=== PATIENT | female | born 1995 | race Caucasian/White ===

== ENCOUNTER 2021-05-11 20:09 | Inpatient (IN) | payer OTHER ==
[2021-05-11 20:41] LABS: HCT 34.2 % (37.0-47.0); HGB 11.3 g/dl (12.5-16.0); MCV 84.9 fL (78.0-100.0); MPV 11.1 fL (6.0-9.5); RBC 4.03 M/uL (4.20-5.40); RDW 13.5 % (11.5-14.0); WBC 10.9 K/uL (4.0-10.5)
[2021-05-11 20:42] LABS: AMPHETAMINES NEGATIVE (NEGATIVE); BARBITURATES NEGATIVE (NEGATIVE); BILIRUBIN NEGATIVE (NEGATIVE); BLOOD NEGATIVE Ery/uL (NEGATIVE); CLARITY CLEAR (CLEAR); COLOR YELLOW (YELLOW); ECSTASY (MDMA) NEGATIVE (NEGATIVE); GLUCOSE (U) NORMAL (NORMAL); LEUKOCYTES NEGATIVE Leu/uL (NEGATIVE); MARIJUANA (THC) NEGATIVE (NEGATIVE); METHADONE NEGATIVE (NEGATIVE); NITRITE NEGATIVE (NEGATIVE); OPIATES NEGATIVE (NEGATIVE); OXYCODONE NEGATIVE (NEGATIVE); PROTEIN NEGATIVE (NEGATIVE); UROBILINOGEN 0.2 mg/dL (0.2-1.0); pH 6.5 (5.0-9.0)
[2021-05-14 06:13] LABS: HCT 28.4 % (37.0-47.0); HGB 9.4 g/dl (12.5-16.0); MCH 28.1 pg (25.0-31.0); MCHC 33.1 g/dL (32.0-36.0); MPV 11.1 fL (6.0-9.5); RBC 3.34 M/uL (4.20-5.40); WBC 17.8 K/uL (4.0-10.5)
== END 2021-05-15 14:21 | disposition home or self-care (01) | DRG 786 ==
LOC: FOB 20:09 → FOD 20:09 → FOB 20:20
PROVIDERS: Obstetrics & Gynecology; ADMIT Obstetrics & Gynecology
PROC: 10D00Z1 Extraction of Products of Conception, Low, Open Approach (ICD-10-PCS; principal; 2021-05-13 14:09)
DX: O62.1 Secondary uterine inertia (principal); U07.1 COVID-19; O98.52 Other viral diseases complicating childbirth; D62 Acute posthemorrhagic anemia; O99.214 Obesity complicating childbirth; Z37.0 Single live birth; Z3A.40 40 weeks gestation of pregnancy; O99.344 Other mental disorders complicating childbirth; F41.9 Anxiety disorder, unspecified; O90.81 Anemia of the puerperium
CPT/HCPCS: 36415; 80305; 81003; 86850; 86900; 86901; J0456; J0595; J0690; J1200; J1800; J1885; J2001; J2405; J2590; J2916; J7050; J7120; U0002